=== PATIENT | female | born 1995 | race Caucasian/White ===

== ENCOUNTER 2022-08-18 16:57 | Emergency (ER) | payer OTHER ==
[~2022-08-18] VITALS: Ht 162.6 cm; Wt 88.6 kg
[2022-08-18 17:03] VITALS: TEMP 98.3
[2022-08-18 17:31] LABS: COLLECTION METHOD CLEAN CATCH
[2022-08-18 17:41] LABS: URINE APPEARANCE Clear (CLEAR/HAZY); URINE BLOOD Negative (NEGATIVE); URINE COLOR Yellow (YELLOW); URINE GLUCOSE Negative (NEGATIVE); URINE KETONE TRACE (NEGATIVE); URINE NITRATE Negative (NEGATIVE); URINE PROTEIN(semi-quant) Negative (NEGATIVE)
[2022-08-18 17:46] LABS: MUCOUS Present (NOT PRESENT); URINE BACTERIA Rare /hpf (NONE SEEN); URINE RBC 0-2 /hpf (0-2)
[2022-08-18 18:40] VITALS: BP 128/82; PULSE 95
== END 2022-08-18 18:40 | disposition home or self-care (01) ==
LOC: COL.ER 16:57
PROVIDERS: Physician Assistant
DX: O9A.212 Injury, poisoning and certain other consequences of external causes complicating pregnancy, second trimester (principal); Z04.3 Encounter for examination and observation following other accident; O20.9 Hemorrhage in early pregnancy, unspecified; Z3A.17 17 weeks gestation of pregnancy; W19.XXXA Unspecified fall, initial encounter; Y92.009 Unspecified place in unspecified non-institutional (private) residence as the place of occurrence of the external cause